=== PATIENT | male | born 1985 | race Asian ===

== ENCOUNTER 2016-11-09 14:48 | Observation (INO) | payer OTHER ==
--- NOTE | ~2016-11-09 | ST ---
Unit #: [id number] #: [id number] Patient: POWER FISHER [id number] [address] [address] [id number] I MR#: [id number] NAME: POWER FISHER : 1985 SEX: M STUDY DATE/TIME: UNIT: C3A U ROOM: 320 STUDY DESCRIPTION: Stress Test Attending Physician: Juan Alberto Howard M.D. CARDIOLOGY REPORT EXAM Stress Test INDICATION Chest pain. SUMMARY Patient exercised on Ambrocio protocol for 10 minutes 16 seconds achieving a workload MET of 12.1. Patient's resting heart rate 67 beats/minute which increased to 181 beats/minute representing 96% of the maximum age-predicted heart rate. Patient's resting blood pressure 126/88 mmHg which increased to 130/80 mmHg with exercise. Patient's resting ECG shows normal sinus rhythm with early repolarization changes. Patient's stress ECG shows sinus tachycardia with preserved ST segments. There is no ventricular or supraventricular ectopy noted. There are no pauses noted. CONCLUSION 1. Patient's stress test portion of the nuclear study is negative for ischemia. 2. Good exercise tolerance. 3. Normal blood pressure and heart rate response to exercise. 4. Perfusion imaging to be dictated separately. Dictated by... Vee Mcgrath/ajay TD: 11/11/2016 06:43 JOB #: [id number] Unit #: [id number] #: [id number] Patient: POWER FISHER CARDIOLOGY REPORT Page 1 of 1 X CHRIS CAGE MD CARDIOLOGY REPORT
--- NOTE | ~2016-11-09 | TH ---
Unit #: [id number] #: [id number] Patient: POWER FISHER [id number] [address] [address] [id number] I MR#: [id number] NAME: POWER FISHER : 1985 SEX: M STUDY DATE/TIME: UNIT: C3A U ROOM: 320 STUDY DESCRIPTION: Nuclear Study Attending Physician: Juan Alberto Howard M.D. CARDIOLOGY REPORT EXAM Perfusion Imaging SUMMARY The patient underwent nuclear Cardiolite stress test. Received a resting dose of 11.6 mCi and a stress dose of 33.4 mCi. On perfusion imaging, patient appears to have normal wall motion with a preserved ejection fraction. Patient's LVEF is 66%. On perfusion imaging, comparing rest and stress images, there appears to be no reversible perfusion defects. CONCLUSION 1. No obvious ischemia. 2. Preserved ejection fraction. 3. ECG portion to be dictated separately. Dictated by... Chris Trejo M.D. IA/df TD: 11/11/2016 06:52 JOB #: [id number] CARDIOLOGY REPORT Page 1 of 1 X CHRIS TREJO MD CARDIOLOGY REPORT
--- NOTE | ~2016-11-09 | EKG ---
PATIENT: POWER FISHER UNIT #: [id number] Ventricular Rate: 70 BPM Atrial Rate: 70 BPM P-R Interval: 184 ms QRS Duration: 86 ms Q-T Interval: 376 ms QTC Calculation(Bezet): 406 ms P Kirby: 56 degrees Calculated R Kirby: 55 degrees Calculated T Kirby: 45 degrees Diagnosis Line: Normal sinus rhythm Diagnosis Line: Normal ECG Diagnosis Line: No previous ECGs available Diagnosis Line: Confirmed by MAYCO MARIN MD ([id number]) on Diagnosis Line: 11/10/2016 8:52:25 AM INTERPRETING MD: JERARDO
--- NOTE | ~2016-11-09 | HP ---
Unit #: [id number] #: [id number] Patient: POWER FISHER [id number] [facility]. [place], [place] [address] [id number] I MR#: [id number] NAME: POWER FISHER ROOM: 320 Age: 31 Sex: M Admission Date: 11/09/2016 : 1985 Attending Physician: Juan Alberto Howard M.D. HISTORY AND PHYSICAL SERVICE [facility] Cardiology. CHIEF COMPLAINT Shortness of air/chest discomfort. HISTORY OF PRESENT ILLNESS The patient is a 31 [place] male who does speak Kyrgyz as a second language. He presents with a two week history of feeling shortness of air and chest discomfort. Patient went to an [facility] on 10/30/2016 with complaints and he was prescribed Zyrtec 10 mg daily; Tessalon Perles 3 times daily; as well as guaifenesin and states that the medications have note been helping. He feels short of breath at rest and with exertion. He can feel it at any time. It hurts when he takes a deep breath. He described a chest discomfort with deep breathing. No nausea. No vomiting. No diaphoresis. Chest discomfort is nonradiating. PAST MEDICAL HISTORY Negative for diabetes mellitus. Negative for hypertension. Negative for dyslipidemia. No family history of premature arteriosclerotic heart disease. No tobacco. PAST SURGICAL HISTORY No past surgical history. HOME MEDICATIONS Except the recent prescriptions for guaifenesin 600 mg twice daily; Tessalon Perles 100 mg t.i.d. p.r.n.; Zyrtec 10 mg 1 daily. ALLERGIES No known allergies. SOCIAL HISTORY No tobacco. No alcohol. No illicit drug use. FAMILY HISTORY Lives in the company of his family. No arteriosclerotic heart disease. REVIEW OF SYSTEMS Negative all systems. No fevers. No chills. Denied cough, although has medications for cough. No difficulty swallowing. No dizziness. No lightheadedness. No near syncope. No syncope. No bright bleeding per rectum. No melena. No constipation. No diarrhea. No hematuria. No lower extremity edema. No gait disturbance. No seizures. No rashes. Unit #: [id number] #: [id number] Patient: POWER FISHER PHYSICAL EXAMINATION GENERAL: Well developed, well nourished, Rey male in no acute distress. VITAL SIGNS: Temp 98.1, pulse 62, normal sinus rhythm, respirations 16, blood pressure 121/77, height 5'3", weight 72.57 kg. BMI 28. HEENT: Normocephalic, atraumatic. No xanthelasma. Pupils equal, round, reactive to light. Extraocular movements intact. NECK: Supple. No jugular venous distention. No elevated CVP. LUNGS: Clear to auscultation bilaterally anteriorly and posteriorly. HEART: S1 and S2. No S3 or S4. No murmur, rub, or gallops. PMI nondisplaced. No lift. ABDOMEN: Soft, nontender, nondistended. EXTREMITIES: No clubbing, cyanosis or edema. 2+ pulses bilaterally. SKIN: No rash. SPINE: No scoliosis. DIAGNOSTIC STUDIES CARDIOLOGY STUDIES: 12 lead EKG normal sinus rhythm, 70 BPM. IMAGING STUDIES: Chest x-ray - no acute findings. No active disease. LABORATORY STUDIES: Sodium 141, potassium 4.4, chloride 109, CO2 25, BUN 11, creatinine 0.9, glucose 81, total protein 7.5, albumin 4.7, AST 27, ALT 34, alk phos 34. Troponin less than 0.03. BNP 18. Point of care testing - troponin less than 0.05, less than 0.05. Hemoglobin 15.2, hematocrit 46.9, white blood cell count 10.8, platelet count 295. ASSESSMENT Atypical chest discomfort with three negative troponins, negative EKG. Patient is undergoing Cardiolite stress test today. Differential diagnosis is pleuritis, costochondritis. Further recommendations to follow. PLAN Patient underwent Cardiolite treadmill stress test, which was negative for ischemia. He had good exercise tolerance, normal left ventricular ejection fraction, and was stable for discharge. Will discharge home on Protonix 40 mg daily. Patient can take Tylenol for pain and followup with his primary care physician. Dictated by Talia Beltran A.P.R.N. for Vee Mcgrath/gladis TD: 11/10/2016 16:48 JOB #: [id number] Unit #: [id number] #: [id number] Patient: POWER FISHER HISTORY AND PHYSICAL Page 1 of 1 X X HISTORY AND PHYSICAL
--- NOTE | ~2016-11-09 | CR72 ---
[facility] A Service of [facility] RADIOLOGY TEXT RESULTS PATIENT: POWER FISHER LOCATION: [facility] 320-01 : [birth year] UNIT #: [id number] AGE: [address]: Juan Alberto Howard MD SEX: M ORDER DR: [id number] [facility] [address] [facility]. [place], [place] [address] [id number] MR#: [id number] Acc #: [id number] NAME: POWER FISHER : 1985 SEX: M STUDY DATE/TIME: 11/09/2016 15:08 UNIT: [facility] ROOM: STUDY DESCRIPTION: CR Chest Single View Portable Attending Physician: Johann Mendoza D.O. Ordering Physician: Johann Mendoza D.O. MEDICAL IMAGING REPORT This report is preliminary unless electronic signature is present EXAM Portable chest. HISTORY Shortness of air for 1 week. Chest pain. FINDINGS The cardiac size and pulmonary vascularity are normal. Lungs are clear. Mild mid-right thoracic curve. Remainder of the chest is negative. IMPRESSION No acute findings. No active disease. Dictated by... Barrett Kazt M.D. THIS IS AN ELECTRONICALLY VERIFIED REPORT Barrett Katz M.D. at 11/09/2016 11:42 PM AFIA/quinn TD: 11/09/2016 16:36 JOB #: [id number] MEDICAL IMAGING REPORT Page 1 of 1 COPY
[2016-11-09 15:32] LABS: PARTIAL THROMBOPLASTIN TIME 25.8 SECONDS (23.5-31.3); PROTHROMBIN TIME (PATIENT) 10.2 SECONDS (9.6-11.5)
[2016-11-09 15:39] LABS: ALBUMIN SERUM 4.7 g/dL (3.5-5.0); BILIRUBIN, DIRECT 0.2 mg/dL (0.0-0.2); BILIRUBIN,INDIRECT 0.4 mg/dL (0.0-0.9); BILIRUBIN,TOTAL 0.6 mg/dL (0.2-2.0); BUN/CREATININE RATIO 12.22; CALCIUM SERUM 9.6 mg/dL (8.4-10.2); CREATININE SERUM 0.9 mg/dL (0.6-1.4); GLOM FILT RATE Estimated 112.6 mL/min (>60); POTASSIUM 4.4 mmol/L (3.5-5.1); PROTEIN TOTAL SERUM 7.5 g/dL (6.0-8.3)
[2016-11-09 15:46] LABS: POC - CKMB <1.0 ng/mL (0.0-7.9); POC - TROPONIN <0.05 ng/mL (<=0.05)
[2016-11-09 16:16] LABS: BASOPHIL# 0.1 X10e3 (0-0.3); BASOPHIL% 0.5 % (0-2.5); EOSINOPHIL# 0.5 X10e3 (0-0.7); EOSINOPHIL% 4.7 % (0.0-7.0); HEMATOCRIT 46.9 % (38.0-50.0); HEMOGLOBIN 15.2 gm/dL (13.0-16.0); LYMPHOCYTE# 3.3 X10e3 (1.0-3.5); LYMPHOCYTE% 30.7 % (17.0-45.0); MEAN CORPUSCULAR HEMOGLOBIN 26.6 PG (28-34); MEAN CORPUSCULAR HGB CONC 32.4 g/dL (30-36); MEAN PLATELET VOLUME 7.6 FL (6.5-11.5); MONOCYTE# 0.6 X10e3 (0-1.0); MONOCYTE% 5.8 % (3.0-12.0); NEUTROPHIL# 6.3 X10e3 (1.5-7.1); NEUTROPHIL% 58.3 % (40-75); PLATELET COUNT 295 X10e3 (140-420); RED BLOOD COUNT 5.72 X10e (3.90-5.60); RED CELL DISTRIBUTION WIDTH 13.7 % (11.0-15.5); WHITE BLOOD COUNT 10.8 X10e3 (4.0-10.5)
[2016-11-09 16:17] LABS: DIFF IND NO
[2016-11-09 18:04] LABS: POC - CKMB <1.0 ng/mL (0.0-7.9); POC - TROPONIN <0.05 ng/mL (<=0.05)
[2016-11-10] MEDS ORDERED: PROTONIX PO (15:28)
== END 2016-11-10 16:02 | disposition home or self-care (01) ==
LOC: CED 14:48 → CEDOF 18:35 → C3A PCU 20:55
PROVIDERS: Emergency Medicine
DX: R07.89 Other chest pain (principal); R06.02 Shortness of breath
CPT/HCPCS: 36415; 71010; 78452; 80048; 80076; 82553; 83880; 84484; 85025; 85379; 85610; 85730; 93005; 93017; 94640; 99285; A9500; G0378

== ENCOUNTER 2017-03-05 10:45 | Emergency (ER) | payer OTHER ==
[~2017-03-05] VITALS: Ht 160 cm; Wt 73.0 kg
--- NOTE | ~2017-03-05 | CT4 ---
[facility] A Service of [facility] RADIOLOGY TEXT RESULTS PATIENT: POWER FISHER LOCATION: [facility] : [birth year] UNIT #: [id number] AGE: [address]: Tj Root MD SEX: M ORDER DR: [id number] [place], [place] [address] [id number] MR#: [id number] Acc #: [id number] NAME: POWER FISHER : 1985 SEX: M STUDY DATE/TIME: 03/05/2017 14:05 UNIT: KADEN ROOM: STUDY DESCRIPTION: CT Abd and Pelv Wo Cont Attending Physician: Tj Root M.D. Ordering Physician: Tj Root M.D. Primary Care Physician: [facility] MEDICAL IMAGING REPORT This report is preliminary unless electronic signature is present EXAM CT abdomen and pelvis 03/05 INDICATIONS Left flank pain for 1 week TECHNIQUE Axial noncontrast images were obtained through the abdomen and pelvis. Multiplanar reformats were obtained. This CT exam was performed with one or more of the following radiation dose reduction techniques: automatic exposure control, adjustment of mA and/or kV according to patient size, and iterative reconstruction. COMPARISON No comparison. FINDINGS Abdomen: Lung bases are clear. The gallbladder is within normal limits. Solid organs are normal. No renal or ureteral stones are seen. There is no hydronephrosis. The unopacified GI tract is normal. There is no free fluid. Pelvis: There are no lower ureteral stones. The bladder is normal. The appendix is normal, as is the remainder of the unopacified GI tract. No free fluid. IMPRESSION Negative noncontrast CT the abdomen and pelvis. No renal or ureteral stones. No hydronephrosis. Normal unopacified GI tract, including the appendix. Dictated by... Ankit Stokes Jr., M.D. [facility] A Service of [facility] RADIOLOGY TEXT RESULTS PATIENT: POWER FISHER LOCATION: [facility] : [birth year] UNIT #: [id number] AGE: [address]: Tj Root MD SEX: M ORDER DR: THIS IS AN ELECTRONICALLY VERIFIED REPORT Ankit Stokes Jr., M.D. at 03/05/2017 5:12 PM TURNER/artemio TD: 03/05/2017 16:28 JOB #: [id number] MEDICAL IMAGING REPORT Page 1 of 1 COPY
[~2017-03-05 10:45] MED LIST: PROTONIX PO
[2017-03-05 11:42] LABS: URINE SOURCE CLEAN CATCH
[2017-03-05 11:51] LABS: URINE APPEARANCE CLEAR; URINE BILIRUBIN NEG (NEG); URINE BLOOD NEG (NEG); URINE COLOR YELLOW; URINE GLUCOSE NEG (NEG); URINE KETONE NEG (NEG); URINE LEUKOCYTE ESTERASE NEG (NEG); URINE NITRATE NEG (NEG); URINE PROTEIN NEG (NEG); URINE SPECIFIC GRAVITY 1.012 (1.003-1.035); URINE UROBILINOGEN 0.2 MG/DL (NEG)
[2017-03-05 11:56] LABS: CULTURE INDICATED? NO
[2017-03-05 13:24] LABS: BASOPHIL% 0.4 % (0-2.5); EOSINOPHIL# 0.3 X10e3 (0-0.7); EOSINOPHIL% 3.2 % (0.0-7.0); HEMATOCRIT 50.1 % (38.0-50.0); HEMOGLOBIN 16.7 gm/dL (13.0-16.0); LYMPHOCYTE# 3.3 X10e3 (1.0-3.5); LYMPHOCYTE% 40.2 % (17.0-45.0); MEAN CELL VOLUME 81.9 FL (83-96); MEAN CORPUSCULAR HEMOGLOBIN 27.3 PG (28-34); MEAN CORPUSCULAR HGB CONC 33.3 g/dL (30-36); MEAN PLATELET VOLUME 6.8 FL (6.5-11.5); MONOCYTE# 0.5 X10e3 (0-1.0); MONOCYTE% 5.7 % (3.0-12.0); NEUTROPHIL# 4.2 X10e3 (1.5-7.1); NEUTROPHIL% 50.5 % (40-75); PLATELET COUNT 356 X10e3 (140-420); RED BLOOD COUNT 6.11 X10e (3.90-5.60); RED CELL DISTRIBUTION WIDTH 13.3 % (11.0-15.5); WHITE BLOOD COUNT 8.3 X10e3 (4.0-10.5)
[2017-03-05 13:25] LABS: DIFF IND NO
[2017-03-05 13:51] LABS: ALBUMIN SERUM 5.2 g/dL (3.5-5.0); BILIRUBIN, DIRECT 0.1 mg/dL (0.0-0.2); BILIRUBIN,INDIRECT 0.4 mg/dL (0.0-0.9); BILIRUBIN,TOTAL 0.5 mg/dL (0.2-2.0); CREATININE SERUM 0.8 mg/dL (0.6-1.4); GLOM FILT RATE Estimated 118.2 mL/min (>60); POTASSIUM 3.8 mmol/L (3.5-5.1); PROTEIN TOTAL SERUM 8.6 g/dL (6.0-8.3)
== END 2017-03-05 15:14 | disposition home or self-care (01) ==
LOC: CED 10:45
DX: R10.32 Left lower quadrant pain (principal)
CPT/HCPCS: 36415; 74176; 80048; 80076; 81003; 85025; 96374; 99284; J1885